=== PATIENT | male | born 1970 | race Caucasian/White ===

== ENCOUNTER 2023-11-10 06:58 | Emergency (ER) | payer MEDICARE, OTHER ==
[~2023-11-10] VITALS: Ht 170.2 cm; Wt 143.0 kg
[~2023-11-10 06:58] MED LIST: ADVAIR 100-501 EACH INH; CYCLOBENZAPRINE10 MG PO; CYMBALTA60 MG PO; LAMOTRIGINE100 MG PO; LATUDA40 MG PO; METFORMIN HCL1000 MG PO; MINIPRESS2 MG PO; MORPHINE SULFAT30 M1 PO; MULTIVITAMINS1 EAC7 PO; NABUMETONE750 MG PO; NAPROSYN500 MG PO; POTASSIUM GLU2.5 MEQ PO; PRILOSEC20 MG PO; PROVENTIL HFA6.7 GM INH; RIZATRIPTAN10 MG PO; TAMSULOSIN HCL0.4 MG PO; TOPAMAX50 MG PO; TRAZODONE HCL50 MG PO; TYLENOL325 MG PO
--- OUTSIDE RECORDS SUMMARY | 2023-11-10 07:00 | XMS ---
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 ED/UCC VISIT TRACKING (12 MO.) 11/10/2023 06:59 AMPARO [facility] [place] TYPE: Emergency COMPLAINT: - TOOTH PAIN INPATIENT VISIT TRACKING (12 MO.) No inpatient visits to display in this time frame [id number]
[2023-11-10] MEDS ORDERED: VITAMIN D21250 MCG (07:12)
[2023-11-10] MEDS ORDERED: GABAPENTIN300 MG PO (07:12)
[2023-11-10] MEDS ORDERED: LURASIDONE HCL80 MG PO (07:13)
[2023-11-10] MEDS ORDERED: TESTOSTERO200 MG/1 M IM (07:13)
[2023-11-10] MEDS ORDERED: MORPHINE SULFAT15 M1 PO (07:13)
[2023-11-10] MEDS ORDERED: TOPIRAMATE100 MG PO (07:13)
[2023-11-10] MEDS ORDERED: CLEOCIN HCL300 MG PO (07:27)
[2023-11-10] MEDS ORDERED: clindamycin HCL 300 MG CAP PO ONE (07:30)
[2023-11-10 07:33] VITALS: BP 131/87
== END 2023-11-10 07:25 | disposition home or self-care (01) ==
LOC: ED 06:58
DX: K04.7 Periapical abscess without sinus (principal); E66.9 Obesity, unspecified; J45.909 Unspecified asthma, uncomplicated; M19.90 Unspecified osteoarthritis, unspecified site; Z88.0 Allergy status to penicillin; Z88.8 Allergy status to other drugs, medicaments and biological substances; Z79.899 Other long term (current) drug therapy; Z79.891 Long term (current) use of opiate analgesic
CPT/HCPCS: 99282

== ENCOUNTER 2024-05-13 12:57 | Emergency (ER) | payer MEDICARE, OTHER ==
[~2024-05-13] VITALS: Ht 170.2 cm; Wt 143.6 kg
--- OUTSIDE RECORDS SUMMARY | ~2024-05-13 | XMS | Continuity of Care Document ---
Demographics + + + | Address | [address] | | | [place] [address] | + + + | Preferred Language | Unknown | + + + | Marital Status | Unknown | + + + | [facility] Affiliation | Unknown | + + + | Race | White | + + + | Ethnic Group | Not or | + + + Author + + + | Author | [facility] | + + + | Organization | [facility] | + + + | Address | [address] | | | [place] [address] | + + + | Phone | | + + + Care Team Providers + + + + | Care Child Welfare Specialist Name | Role | Phone | + + + + Unavailable | Unavailable | + + + + Allergies No information. Encounters No information. Functional Status No information. Immunizations No information. Medications No information. Problems + + + + | date | description | facility | + + + + | 2024-05-06 14:21:39 | Opioid dependence, | [facility] | | | uncomplicated | | + + + + | 2024-05-06 14:21:39 | Other chronic pain | [facility] | + + + + | 2024-05-06 14:21:39 | Low back pain, unspecified | [facility] | | | | | + + + + Procedures No information. Results/Labs No information. Social History +--------+ + + | date | description | facility | +--------+ + + Vital Signs No information."
[~2024-05-13 12:57] MED LIST changes: +CLEOCIN HCL300 MG PO; +GABAPENTIN300 MG PO; +LURASIDONE HCL80 MG PO; +MORPHINE SULFAT15 M1 PO; +TESTOSTERO200 MG/1 M IM; +TOPIRAMATE100 MG PO; +VITAMIN D21250 MCG
[2024-05-13] MEDS ORDERED: predniSONE 20 MG TAB PO ONE (13:30)
[2024-05-13] MEDS ORDERED: ALBUTEROL/IPRATROPIUM 3 ML NEB INH ONE (13:30)
[2024-05-13] MEDS ORDERED: VENTOLIN HFA18 GM INH (13:56)
[2024-05-13] MEDS ORDERED: PREDNISONE50 MG PO (13:56)
[2024-05-13 14:02] LABS: INFLUENZA B NAA NEGATIVE (NEGATIVE); RESPIRATORY SYNCYTIAL VIR NAA NEGATIVE (NEGATIVE)
[2024-05-13 14:20] VITALS: BP 138/75
== END 2024-05-13 14:21 | disposition home or self-care (01) ==
LOC: ED 12:57
PROVIDERS: Emergency Medicine
DX: J10.1 Influenza due to other identified influenza virus with other respiratory manifestations (principal); J45.909 Unspecified asthma, uncomplicated; E66.9 Obesity, unspecified; Z68.42 Body mass index [BMI] 45.0-49.9, adult; Z88.0 Allergy status to penicillin; Z88.5 Allergy status to narcotic agent; Z88.8 Allergy status to other drugs, medicaments and biological substances; Z79.84 Long term (current) use of oral hypoglycemic drugs; Z79.899 Other long term (current) drug therapy
CPT/HCPCS: 71046; 87502; 94640; 99285-25; J7512; U0002

== ENCOUNTER 2024-08-17 18:16 | Emergency (ER) | payer MEDICARE, OTHER ==
[~2024-08-17] VITALS: Ht 170.2 cm; Wt 143.4 kg
[~2024-08-17 18:16] MED LIST changes: +PREDNISONE50 MG PO; +VENTOLIN HFA18 GM INH
[2024-08-17 19:48] LABS: BILIRUBIN, URINE NEGATIVE (negative); BLOOD/HGB, URINE NEGATIVE (Negative); KETONE, URINE NEGATIVE (Negative); LEUK ESTERASE, URINE NEGATIVE (negative); NITRITE, URINE NEGATIVE (negative)
[2024-08-17 20:11] LABS: BACTERIA, URINE 1+ /hpf (negative); CASTS, URINE NONE SEEN \\lpf; COLLECTION TYPE, URINE CLEAN CATCH; CRYSTALS, URINE AMORPHOUS PHOSPH 2+ (0-1+); EPITHELIAL CELLS, URINE NONE SEEN /lpf (0-1+); RED BLOOD CELLS, URINE 0-1 /hpf (0-5); REFLEX CULTURE, URINE No (No); WHITE BLOOD CELLS, URINE 0-1 /HPF (0-5)
[2024-08-17] MEDS ORDERED: CIPRO500 MG PO (22:49)
[2024-08-17 22:58] VITALS: BP 149/83
[2024-08-17] MEDS ORDERED: CIPROFLOXACIN 500 MG TAB PO ONE (23:00)
== END 2024-08-17 22:58 | disposition home or self-care (01) ==
LOC: ED 18:16
PROVIDERS: Emergency Medicine
DX: N41.9 Inflammatory disease of prostate, unspecified (principal); M19.90 Unspecified osteoarthritis, unspecified site; J45.909 Unspecified asthma, uncomplicated; Z88.0 Allergy status to penicillin; Z88.8 Allergy status to other drugs, medicaments and biological substances; Z79.899 Other long term (current) drug therapy
CPT/HCPCS: 51798; 81001; 99283